=== PATIENT | male | born 1985 | race Caucasian/White ===

== ENCOUNTER 2018-08-20 04:41 | Emergency (ER) | payer MEDICAID, OTHER ==
[~2018-08-20] VITALS: Ht 170.2 cm; Wt 81.4 kg
[2018-08-20] MEDS ORDERED: normal saline 1000ML IV soln IVB ONE (04:50)
[2018-08-20] MEDS ORDERED: ondansetron/PF 4mg/2ml inj IV ONE (04:50)
[2018-08-20] MEDS ORDERED: morphine 4 MG/ML inj SYRINge IV PRN (04:50)
[2018-08-20] MEDS ORDERED: sucralfate 1gm/10ml UD suspension PO STA (04:57)
[2018-08-20] MEDS ORDERED: mag hydrox/Alum hydrox/simeth 30ml oral suspension PO ONE (05:00)
[2018-08-20] MEDS ORDERED: LIDOcaine Viscous 15ml cup PO ONE (05:00)
[2018-08-20 05:22] LABS: BASOPHILS % (AUTO) 0.2 % (0-1); EOSINOPHILS # (AUTO) 0.1 X10'3 (0-0.9); EOSINOPHILS % (AUTO) 0.6 % (0-6); HEMATOCRIT 43.5 % (42.0-52.0); HEMOGLOBIN 14.5 g/dl (14.0-17.9); LYMPHOCYTES # (AUTO) 1.5 X10'3 (1.1-4.8); LYMPHOCYTES % (AUTO) 16.4 % (21-51); MEAN CORPUSCULAR HEMOGLOBIN 26.5 PG (27.0-31.0); MEAN CORPUSCULAR HGB CONC 33.4 g/dL (33.0-36.5); MEAN CORPUSCULAR VOLUME 79.2 FL (78-98); MEAN PLATELET VOLUME 9.6 FL (7.4-10.4); MONOCYTES # (AUTO) 0.7 X10'3 (0-0.9); MONOCYTES % (AUTO) 7.3 % (2-12); NEUTROPHILS % (AUTO) 75.5 % (42-75); PLATELET COUNT 200 X10'3 (140-440); RED BLOOD COUNT 5.49 X10'6 (4.70-6.10); RED CELL DISTRIBUTION WIDTH 14.9 % (11.5-14.5); WHITE BLOOD COUNT 9.2 X10'3 (4.5-11.0)
[2018-08-20 05:31] LABS: ALANINE AMINOTRANSFERASE 39 U/L (12-78); ALBUMIN 4.6 G/DL (3.4-5.0); ALBUMIN/GLOBULIN RATIO 1.2 (1.1-1.5); ALKALINE PHOSPHATASE 70 IU/L (46-116); ANION GAP 11 (8-16); ASPARTATE AMINO TRANSFERASE 33 U/L (10-37); BILIRUBIN,TOTAL 0.3 MG/DL (0.1-1.0); BLOOD UREA NITROGEN 15 MG/DL (7-18); BUN/CREATININE RATIO 12.6 (5.4-32.0); CALCIUM 9.4 MG/DL (8.5-10.1); CHLORIDE 102 MMOL/L (99-107); CREATININE 1.19 MG/DL (0.60-1.10); GLUCOSE 126 MG/DL (70-104); LIPASE 125 U/L (73-393); SODIUM 139 MMOL/L (135-145); TOTAL CARBON DIOXIDE 26.1 MMOL/L (24-32); TOTAL PROTEIN 8.5 G/DL (6.4-8.2); eGFR 72 ML/MIN
--- NOTE | 2018-08-20 05:33 | NUR ---
States pqain has decreased from 01/31 to currently 10/01 after medication administration
[2018-08-20 05:39] LABS: POTASSIUM 3.6 MMOL/L (3.5-5.1)
--- NOTE | 2018-08-20 05:57 | NUR ---
PO fluids given to patient for PO challenge
[2018-08-20] MEDS ORDERED: SUCR1TAB34 PO (06:04)
[2018-08-20 06:12] VITALS: BP 145/78
== END 2018-08-20 06:16 | disposition home or self-care (01) ==
LOC: ER 04:42
DX: R10.13 Epigastric pain (principal); R11.10 Vomiting, unspecified; R19.7 Diarrhea, unspecified; F12.90 Cannabis use, unspecified, uncomplicated
CPT/HCPCS: 36415; 80053; 83690; 85025; 96361; 96374; 96375; 99283; J2270; J2405; J7030

== ENCOUNTER 2018-08-22 22:34 | Inpatient (IN) | payer MEDICAID, OTHER | END 2018-08-25 14:17 | disposition home or self-care (01) | LOC: ED HOLD 08-23 00:49 → ER 22:34 → SUR 3N 08-23 02:15 | PROC: 0FT44ZZ Resection of Gallbladder, Percutaneous Endoscopic Approach (ICD-10-PCS; principal; 2018-08-23 14:28) | DX: K80.00 Calculus of gallbladder with acute cholecystitis without obstruction (principal); E87.6 Hypokalemia ==